=== PATIENT | male | born 1955 | race African-American/Black ===

== ENCOUNTER → 2016-12-18 | Outpatient (CLI) | payer BC ==
[~2016-12-18] VITALS: Ht 188 cm; Wt 97.3 kg
[~2016-12-18] MED LIST: ASPIR 8181 MG PO; LIPITOR 20 MG T20 M1 PO; LISINOPRIL40 MG PO; LYRICA100 MG PO; METFORMIN HCL1000 MG PO; METHADONE HCL5 MG PO; METOPROLOL TART25 MG PO; PLAVIX 75 MG TA75 M1 PO; TEGRETOL200 MG PO
--- NOTE | ~2016-12-18 | HPC ---
[facility] [place] [address] PAIN MANAGEMENT CONSULTATION Name: JOSELANECRISTAL ESPITIAYD Room #: REG [facility] [id number] Admission: 12/18/16 Attend Phys: Adolfo Garcia DO Discharge: Date of : 51 Report #: [id number] THIS REPORT FOR: //name// CC: [facility] physician/PCP Kenroy Garcia The patient is a very pleasant 61-year-old gentleman seen in consultation at the request of Dr. Kenroy Michel for assistance with management of right hemifacial pain. The patient developed adenocarcinoma of the right parotid, subsequent surgical resection on 10/28/2005. He had a right total parotidectomy with facial nerve sacrifice, right cortical mastoidectomy with facial nerves tumor removal, right modified radical neck dissection, and right eyelid tarsorrhaphy. The patient had subsequent radiation to the right side of the face. He did well for a number of years, past 3 years; however, has developed exquisite pain in the right trigeminal V2 distribution. The patient apparently has tried Tegretol in the distant past, had tried gabapentin up to 600 mg t.i.d. without improvement. Diagnostic studies most recently include PET scan in 2014 and MRI, which were unremarkable for pathology. He saw a neurosurgeon at , was switched from gabapentin to Lyrica. Lyrica 100 mg b.i.d. did provide some pain relief initially, for up to 3 months, but currently he has no significant relief with this. He has taken Lortab 30 tablets a month from Dr. Luna also with really no efficacy. Notes sharp, lancinating pain, describes an ice pick sensation in the right side of his mid face. Describes the pain as continuous, periodic, rates it anywhere from a 5 to 10 on a VAS. Nothing seems to relief his pain. REVIEW OF SYSTEMS: A complete review of systems was attached to chart and was gone over with the patient. He is single. He has continued to smoke; he has for 20 years, still smokes about half pack a day. He does not drink alcohol to excess. History of non-insulin dependent diabetes for which he takes metformin, hypertension treated with lisinopril and metoprolol, status post coronary artery disease with endovascular stent placed in 2016, currently on Plavix. Dyslipidemia for which he takes atorvastatin. Other than the aforementioned right radical neck surgery, he has had no other surgeries. 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 He rates his pain impact score remarkably low, 20/70. [address] [address] PAIN MANAGEMENT CONSULTATION Name: LANE GARCIA JR Room #: REG [facility] [id number] Admission: 12/18/16 Attend Phys: Adolfo Garcia DO Discharge: Date of : 51 Report #: [id number] PHYSICAL EXAMINATION: Reveals a pleasant 6 feet 2 inches, 210 pounds gentleman, BMI is 27.5 kg/m2. Blood pressure is elevated today 132/104, pulse is 61, and respirations are 16. Cranial nerves 2-12 are grossly intact. He does have some right facial paresis, status post surgery. Extraocular muscles do appear to be intact. There is no nystagmus or lateral gaze deviation. He does have obvious asymmetry on the right side of the face, status post surgery. He has somewhat hard skin and underlying tissues in the right neck compatible with history of radiation therapy. There is a trace cervical adenopathy appreciated on the right side of the neck. TMJ range of motion is limited to about 15-17 mm. No pain with palpation over the TMJ. There is no pain with percussion over the frontal sinuses. He has some hypesthesia over the mid right face with allodynia. I do not detect carotid bruits. Upper extremity strength is symmetric. Heart is regular rhythmical without murmur. Lungs are clear to auscultation. Gait is tandem, remaining exam was essentially unremarkable. ASSESSMENT: Neuropathic pain, right hemifacial trigeminal neuralgia, status post right parotid adenocarcinoma and radical neck dissection in 2005 with radiation therapy. RECOMMENDATIONS: Long discussion with the patient today about therapeutic options. We will trial combination of sodium and calcium channel membrane stabilizing agents, continue Lyrica (calcium channel stabilizing agent) at a moderate dose of 200 mg daily (therapeutic dose can get up to 600 mg). We will add Tegretol 200 mg b.i.d. (calcium channel membrane stabilizing agent). Once stable on this agent in about one week, we will also add low dose opiate analgesics with NMDA receptor activity, methadone 2.5 mg starting at bedtime for about 3 nights and then titrating up to 2.5 mg t.i.d. We will use only after work and at bedtime if there is untoward sedation. The patient cautioned about daytime somnolence, mental acuity changes, and constipation. We will see the patient back in 2 weeks for reevaluation. We will plan on having the patient off Plavix for 7 days (he may take low dose daily aspirin) for consideration for a right stellate ganglion block under fluoroscopy. Thank you for allowing me to participate in the patient's care. I will keep you abreast of his progress. <ELECTRONICALLY SIGNED> By: Adolfo Garcia DO 12/22/16 0746 1510 1612 Adolfo Garcia DO /nt
[2016-12-18 10:17] VITALS: BP 132/104
== END | disposition home or self-care (01) ==
LOC: PAIN 07:05
DX: G62.9 Polyneuropathy, unspecified (principal); Z85.89 Personal history of malignant neoplasm of other organs and systems; Z98.890 Other specified postprocedural states; F17.200 Nicotine dependence, unspecified, uncomplicated; E11.9 Type 2 diabetes mellitus without complications; I10 Essential (primary) hypertension; I25.10 Atherosclerotic heart disease of native coronary artery without angina pectoris; Z95.1 Presence of aortocoronary bypass graft; E78.5 Hyperlipidemia, unspecified; Z79.84 Long term (current) use of oral hypoglycemic drugs; Z51.81 Encounter for therapeutic drug level monitoring

== ENCOUNTER → 2017-02-16 | Outpatient (CLI) | payer BC ==
[~2017-02-16] VITALS: Ht 188 cm; Wt 87.6 kg
--- NOTE | ~2017-02-16 | HPC ---
[facility] [address] [place] [address] PAIN MANAGEMENT CONSULTATION Name: LANE GARCIA JR [facility]: [facility] [id number] Admission: 02/16/17 Attend Phys: Adolfo Garcia DO Discharge: Date of : 51 Report #: [id number] THIS REPORT FOR: //name// CC: [facility] physician/PCP Adolfo Garcia The patient is a pleasant 61-year-old gentleman suffering with neuropathic pain, left hemifacial status post radical neck dissection for adenocarcinoma of the right parotid. Status post radiation therapy of the same. The patient has episodic neuropathic pain affecting the right side of his head, neck and face. He has ongoing paresthesia, right hemifacial. Started the patient on Tegretol, titrated up to 200 mg b.i.d. He notes no significant change. In the last 2 months since I saw him, he has had 6 episodes of that lancinating pain, seems to come on unrelated to activity. Typically, they had only lasted 20-30 minutes to an hour or so, now they seemed to be lasting a little bit longer. Physical exam is unchanged. A pleasant 61-year-old gentleman, BMI is 24.8 kilograms per meter squared. Vital signs are stable as noted in the EMR. Significant cosmetic defect secondary to the radical neck dissection, characteristic skin and subcutaneous tissue changes subsequent to radiation therapy, right side of the neck. Subjective loss of sensation cutaneously, but some hyperpathia, right hemifacial. ASSESSMENT: Neuropathic pain, right hemifacial status post adenocarcinoma of the right parotid, prompting radical neck dissection and radiation therapy. RECOMMENDATION: Continue the Tegretol at 200 mg b.i.d. We will resume Lyrica at 100 mg at bedtime. If this does not afford some synergistic response, we will consider stellate ganglion block on the right side. The patient will need to be off Plavix for 7 days for said procedure. Plan on following up in 4 weeks for reevaluation. Discontinue methadone 2.5 mg t.i.d. due to lack of efficacy. By: [id number] Adolfo Garcia DO /nt
[2017-02-16 09:35] VITALS: BP 149/70
== END | disposition home or self-care (01) ==
LOC: PAIN 01-01 07:20
DX: G62.9 Polyneuropathy, unspecified (principal); C07 Malignant neoplasm of parotid gland; Z98.890 Other specified postprocedural states; Z79.899 Other long term (current) drug therapy; F17.210 Nicotine dependence, cigarettes, uncomplicated

== ENCOUNTER 2017-08-31 05:27 | Day surgery (SDC) | payer BC ==
[~2017-08-31] VITALS: Ht 188 cm; Wt 86.6 kg
--- NOTE | ~2017-08-31 | EKG ---
[address] [place] [employer] [place] [address] ELECTROCARDIOGRAM REPORT Name: LANE GARCIA Room #: 150-5 [facility]#: [id number] Admission: 08/31/17 Attend Phys: Jasvir Hernadez MD Discharge: Date of : 51 Report #: [id number] THIS REPORT FOR: //name// 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: CHER BENITEZ : 1955 Requested By: Viktor Manning Order Number: [id number] MD: Alan Ramirez Measurements Intervals [place] Rate: 48 P: 41 MD: 158 QRS: 55 QRSD: 119 T: 97 QT: 457 QTc: 409 Interpretive Statements Sinus bradycardia Supraventricular bigeminy Nonspecific ST segment abnormality Compared to ECG 06/27/2004 17:51:10 Atrial premature complex(es) now present Electronically Signed On 08-31-2017 17:20:58 CDT by Alan Ramirez [email or web address] <ELECTRONICALLY SIGNED> By: Alan Ramirez MD, [facility] 08/31/17 1720 1439 1439 Alan Ramirez MD, [facility] /EPI
--- NOTE | ~2017-08-31 | O ---
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 PROCEDURE: Right lower lid ectropion repair with transconjunctival right lower lid and cheek lift and permanent right lateral tarsorrhaphy. SURGEON: Jasvir Hernadez M.D. COMMERCIAL SINGER: None. ANESTHESIA: MAC. COMPLICATIONS: None. INDICATIONS FOR SURGERY: This pleasant 61-year-old gentleman has a right-sided facial nerve paralysis with ectropion, lagophthalmos and progressive corneal changes. He presents today for right lower lid and cheek procedure in order to attempt to improve his ocular surface milieu. Informed consent was obtained to include but not limited to the potential risk for loss of vision, bleeding, infection, failure to improve the problem, and the potential need for further surgery or treatment. He understands that he may end up needing a gold upper lid weight. DESCRIPTION OF PROCEDURE: The patient was taken to the operating room where 2% Xylocaine with epinephrine mixed with equal parts of 0.75% Marcaine with Wydase was administered transcutaneously and transconjunctivally to the right lower lid, the right lateral canthus, the right cheek, the right infratemporal fossa and the right upper lid. The patient was subsequently prepped and draped in the usual sterile fashion. The right lateral canthus was then clamped with a Davidson clamp. A sharp canthotomy and cantholysis was subsequently performed. Hemostasis was then re-achieved. A tarsal strip was then prepared laterally [facility] the [facility] [address] [place] [address] [address]PERATIVE REPORT Name: LANE GARCIA Room #: DE[place] [facility] [place]#: [id number] Admission: 08/31/17 Attend Phys: Jasvir Hernadez MD Discharge: 08/31/17 Date of : 51 Report #: [id number] bearing portion of the redundant lid margin and the redundant tarsal plate. A transconjunctival incision was then made below the inferior border of the tarsal plate and carried out into the premalar tissues. Hemostasis was then re-achieved. The lower lid and cheek tissues were then elevated and resuspended from periosteum with interrupted 5-0 Prolene sutures. The lid margin was denuded over the lateral one-third central to the lashes. A pretarsal incision was then made in the lateral most portion of the upper and lower lid in the air with proposed tarsorrhaphy. The tarsal strip was then resuspended to the internal portion of the lateral orbital tubercle with interrupted 5-0 Prolene sutures. The subcutaneous structures and the skin were then closed with interrupted 6-0 plain gut sutures. Transtarsal 5-0 Vicryl sutures were then passed in a serpentine fashion across the lid utilizing a mattress technique. This adhered the lateral one-third of the lid margin quite well. The sutures were secured. The pretarsal incisions were then closed with interrupted 6-0 plain gut sutures. The wounds were then cleaned and dressed with erythromycin ophthalmic ointment. The patient subsequently transported to the recovery area having tolerated the procedures well with no anesthetic or operative complications being noted. <ELECTRONICALLY SIGNED> By: Jasvir Hernadez MD 09/07/17 1651 1614 1636 Jasvir Hernadez MD /nt
[~2017-08-31 05:27] MED LIST changes: +HYDROCODONE-AP1 EAC6 PO; +SERTRALINE HCL100 MG PO; +STOOL SOFTENER100 MG PO
[2017-08-31 14:24] VITALS: BP 108/40
== END 2017-08-31 16:52 | disposition home or self-care (01) ==
LOC: OR 05:27 → TBA 05:27 → OR 13:36
DX: H02.102 Unspecified ectropion of right lower eyelid (principal); H02.202 Unspecified lagophthalmos right lower eyelid; H18.9 Unspecified disorder of cornea; F32.9 Major depressive disorder, single episode, unspecified; F41.9 Anxiety disorder, unspecified; F17.210 Nicotine dependence, cigarettes, uncomplicated; I10 Essential (primary) hypertension; E11.51 Type 2 diabetes mellitus with diabetic peripheral angiopathy without gangrene; Z98.890 Other specified postprocedural states; Z95.5 Presence of coronary angioplasty implant and graft
CPT/HCPCS: 50010; 50101; 50386; 50398; 51636; 56527; 56528; 56531; 62110; 62850; 70005

== ENCOUNTER → 2017-12-02 | Outpatient (CLI) | payer BC | LOC: HYPER | DX: S01.301A Unspecified open wound of right ear, initial encounter (principal); E11.69 Type 2 diabetes mellitus with other specified complication; M87.38 Other secondary osteonecrosis, other site; E11.51 Type 2 diabetes mellitus with diabetic peripheral angiopathy without gangrene; I10 Essential (primary) hypertension; G45.9 Transient cerebral ischemic attack, unspecified; C07 Malignant neoplasm of parotid gland; J44.9 Chronic obstructive pulmonary disease, unspecified; F17.200 Nicotine dependence, unspecified, uncomplicated; F41.1 Generalized anxiety disorder; Z79.84 Long term (current) use of oral hypoglycemic drugs; Z79.01 Long term (current) use of anticoagulants; Z86.73 Personal history of transient ischemic attack (TIA), and cerebral infarction without residual deficits; X58.XXXA Exposure to other specified factors, initial encounter; Y93.89 Activity, other specified; Y92.89 Other specified places as the place of occurrence of the external cause; Y99.8 Other external cause status ==

== ENCOUNTER → 2017-12-14 | Outpatient (CLI) | payer BC | LOC: RAD 11:34 | DX: Z01.818 Encounter for other preprocedural examination (principal); J98.4 Other disorders of lung; C07 Malignant neoplasm of parotid gland; M87.38 Other secondary osteonecrosis, other site; I10 Essential (primary) hypertension; E11.9 Type 2 diabetes mellitus without complications ==

== ENCOUNTER → 2017-12-23 | Outpatient (CLI) | payer BC | LOC: HYPER 06:46 | DX: E11.622 Type 2 diabetes mellitus with other skin ulcer (principal); L98.494 Non-pressure chronic ulcer of skin of other sites with necrosis of bone; E11.51 Type 2 diabetes mellitus with diabetic peripheral angiopathy without gangrene; M27.2 Inflammatory conditions of jaws; M87.88 Other osteonecrosis, other site; I10 Essential (primary) hypertension; C07 Malignant neoplasm of parotid gland; G45.9 Transient cerebral ischemic attack, unspecified; J44.9 Chronic obstructive pulmonary disease, unspecified; F41.9 Anxiety disorder, unspecified; F17.200 Nicotine dependence, unspecified, uncomplicated; Z86.73 Personal history of transient ischemic attack (TIA), and cerebral infarction without residual deficits; Z79.84 Long term (current) use of oral hypoglycemic drugs; Z79.01 Long term (current) use of anticoagulants; W88.1XXA Exposure to radioactive isotopes, initial encounter ==

== ENCOUNTER → 2017-12-24 | Outpatient (CLI) | payer BC | LOC: HYPER 06:57 | DX: E11.622 Type 2 diabetes mellitus with other skin ulcer (principal); L98.494 Non-pressure chronic ulcer of skin of other sites with necrosis of bone; M87.88 Other osteonecrosis, other site; E11.51 Type 2 diabetes mellitus with diabetic peripheral angiopathy without gangrene; M27.2 Inflammatory conditions of jaws; C07 Malignant neoplasm of parotid gland; M48.9 Spondylopathy, unspecified; J44.9 Chronic obstructive pulmonary disease, unspecified; I10 Essential (primary) hypertension; G45.9 Transient cerebral ischemic attack, unspecified; F41.9 Anxiety disorder, unspecified; F17.200 Nicotine dependence, unspecified, uncomplicated; Z79.84 Long term (current) use of oral hypoglycemic drugs; Z79.01 Long term (current) use of anticoagulants; Z86.73 Personal history of transient ischemic attack (TIA), and cerebral infarction without residual deficits; W88.1XXA Exposure to radioactive isotopes, initial encounter ==

== ENCOUNTER → 2017-12-25 | Outpatient (CLI) | payer BC | LOC: HYPER 07:04 | DX: E11.622 Type 2 diabetes mellitus with other skin ulcer (principal); L98.494 Non-pressure chronic ulcer of skin of other sites with necrosis of bone; E11.51 Type 2 diabetes mellitus with diabetic peripheral angiopathy without gangrene; M27.2 Inflammatory conditions of jaws; M87.88 Other osteonecrosis, other site; C07 Malignant neoplasm of parotid gland; I10 Essential (primary) hypertension; G45.9 Transient cerebral ischemic attack, unspecified; J44.9 Chronic obstructive pulmonary disease, unspecified; F41.9 Anxiety disorder, unspecified; F17.200 Nicotine dependence, unspecified, uncomplicated; Z79.84 Long term (current) use of oral hypoglycemic drugs; Z79.01 Long term (current) use of anticoagulants; W88.1XXD Exposure to radioactive isotopes, subsequent encounter ==

== ENCOUNTER → 2017-12-30 | Outpatient (CLI) | payer BC | LOC: HYPER 06:58 | DX: M27.2 Inflammatory conditions of jaws (principal); E11.51 Type 2 diabetes mellitus with diabetic peripheral angiopathy without gangrene; C07 Malignant neoplasm of parotid gland; G45.9 Transient cerebral ischemic attack, unspecified; J44.9 Chronic obstructive pulmonary disease, unspecified; F41.9 Anxiety disorder, unspecified; F17.200 Nicotine dependence, unspecified, uncomplicated; Z79.84 Long term (current) use of oral hypoglycemic drugs; Z79.01 Long term (current) use of anticoagulants; Z86.73 Personal history of transient ischemic attack (TIA), and cerebral infarction without residual deficits; W88.1XXD Exposure to radioactive isotopes, subsequent encounter ==

== ENCOUNTER → 2017-12-31 | Outpatient (CLI) | payer BC | LOC: HYPER 07:07 | DX: M87.88 Other osteonecrosis, other site (principal); E11.622 Type 2 diabetes mellitus with other skin ulcer; L98.494 Non-pressure chronic ulcer of skin of other sites with necrosis of bone; E11.51 Type 2 diabetes mellitus with diabetic peripheral angiopathy without gangrene; I10 Essential (primary) hypertension; C07 Malignant neoplasm of parotid gland; G45.9 Transient cerebral ischemic attack, unspecified; J44.9 Chronic obstructive pulmonary disease, unspecified; F17.200 Nicotine dependence, unspecified, uncomplicated; F41.9 Anxiety disorder, unspecified; Z79.01 Long term (current) use of anticoagulants; Z79.84 Long term (current) use of oral hypoglycemic drugs; Z86.73 Personal history of transient ischemic attack (TIA), and cerebral infarction without residual deficits; W88.1XXD Exposure to radioactive isotopes, subsequent encounter ==

== ENCOUNTER → 2018-01-05 | Outpatient (CLI) | payer BC | LOC: HYPER 06:54 | DX: M27.2 Inflammatory conditions of jaws (principal); E11.622 Type 2 diabetes mellitus with other skin ulcer; L98.494 Non-pressure chronic ulcer of skin of other sites with necrosis of bone; E11.51 Type 2 diabetes mellitus with diabetic peripheral angiopathy without gangrene; C07 Malignant neoplasm of parotid gland; I10 Essential (primary) hypertension; G45.9 Transient cerebral ischemic attack, unspecified; J44.9 Chronic obstructive pulmonary disease, unspecified; F41.9 Anxiety disorder, unspecified; F17.200 Nicotine dependence, unspecified, uncomplicated; Z86.73 Personal history of transient ischemic attack (TIA), and cerebral infarction without residual deficits; Z79.84 Long term (current) use of oral hypoglycemic drugs; Z79.01 Long term (current) use of anticoagulants; W88.1XXD Exposure to radioactive isotopes, subsequent encounter ==

== ENCOUNTER → 2018-01-07 | Outpatient (CLI) | payer BC | LOC: HYPER 06:55 | DX: M27.2 Inflammatory conditions of jaws (principal); E11.622 Type 2 diabetes mellitus with other skin ulcer; L98.494 Non-pressure chronic ulcer of skin of other sites with necrosis of bone; I10 Essential (primary) hypertension; C07 Malignant neoplasm of parotid gland; E11.51 Type 2 diabetes mellitus with diabetic peripheral angiopathy without gangrene; G45.9 Transient cerebral ischemic attack, unspecified; J44.9 Chronic obstructive pulmonary disease, unspecified; F17.200 Nicotine dependence, unspecified, uncomplicated; Z79.84 Long term (current) use of oral hypoglycemic drugs; Z86.73 Personal history of transient ischemic attack (TIA), and cerebral infarction without residual deficits; Z79.01 Long term (current) use of anticoagulants; W88.1XXD Exposure to radioactive isotopes, subsequent encounter ==

== ENCOUNTER → 2018-02-09 | Outpatient (CLI) | payer BC | LOC: HYPER 01-15 07:29 | DX: S01.301D Unspecified open wound of right ear, subsequent encounter (principal); C07 Malignant neoplasm of parotid gland; M27.3 Alveolitis of jaws; E11.51 Type 2 diabetes mellitus with diabetic peripheral angiopathy without gangrene; H91.90 Unspecified hearing loss, unspecified ear; I10 Essential (primary) hypertension; J44.9 Chronic obstructive pulmonary disease, unspecified; F41.9 Anxiety disorder, unspecified; F17.200 Nicotine dependence, unspecified, uncomplicated; Z86.73 Personal history of transient ischemic attack (TIA), and cerebral infarction without residual deficits; Z79.84 Long term (current) use of oral hypoglycemic drugs; Z79.01 Long term (current) use of anticoagulants; W88.1XXD Exposure to radioactive isotopes, subsequent encounter ==